=== PATIENT | female | born 1970 | race Caucasian/White ===

== ENCOUNTER 2017-08-27 16:52 | Emergency (ER) | payer OTHER ==
[~2017-08-27] VITALS: Ht 165.1 cm; Wt 77.2 kg
[~2017-08-27 16:52] MED LIST: ADVIL200 M3 PO; BACLOFEN20 MG PO; COLACE100 MG PO; DETROL2 MG PO; MONTELUKAST SOD10 MG PO; NASONEX17 GM BOTH NARES; PROAIR HFA8.5 GM IH; SYSTANE LIQUID15 ML BOTH EYES; TYLENOL REGULA325 MG PO; ZANTAC150 MG PO; ZYRTEC10 M3 PO
[2017-08-27 19:42] VITALS: BP 126/74
== END 2017-08-27 19:54 | disposition home or self-care (01) ==
LOC: EME 16:52
PROC: 0JQ10ZZ Repair Face Subcutaneous Tissue and Fascia, Open Approach (ICD-10-PCS; principal; 2017-08-27)
DX: S01.81XA Laceration without foreign body of other part of head, initial encounter (principal); W19.XXXA Unspecified fall, initial encounter; G93.89 Other specified disorders of brain; J30.2 Other seasonal allergic rhinitis; Z87.820 Personal history of traumatic brain injury
CPT/HCPCS: 70450; 99281; 99284